=== PATIENT | female | born 1950 | race Caucasian/White ===

== ENCOUNTER 2016-07-03 13:20 | Emergency (ER) | payer MEDICARE ==
--- NOTE | 2016-07-03 13:40 | ER Document Report ---
ED Medical Screen (RME) - General Stated Complaint: FALL/LIP, RIGHT ARM AND KNEE INJURY Notes: patient is a 65 year old female p/w mechanical fall today. unsure of how she landed. pain on nose, right arm, right knee -headache, n/v, ams, confusion not on blood thinners lip lac, facial lac able to walk with abrasions on knee pain at proximal ulna with visible swelling able to move fingers, pulses intact I have greeted and performed a rapid initial assessment of this patient. A comprehensive ED assessment and evaluation of the patient, analysis of test results and completion of the medical decision making process will be conducted by additional ED providers. TRAVEL OUTSIDE OF THE [place] IN LAST 30 DAYS: No Physical Exam - Vital signs Vitals: Temp Pulse Resp BP Pulse Ox 97.6 F 81 18 142/88 H 97 07/03/16 13:28 07/03/16 13:28 07/03/16 13:28 07/03/16 13:28 07/03/16 13:28 Course - Vital Signs Vital signs: Temp Pulse Resp BP Pulse Ox 97.6 F 81 18 142/88 H 97 07/03/16 13:28 07/03/16 13:28 07/03/16 13:28 07/03/16 13:28 07/03/16 13:28
[2016-07-03] MEDS ORDERED: OXYCODONE-ACETAMINOPHEN 5-325 MG TABLET PO ONE (13:41)
--- NOTE | 2016-07-03 14:08 | ER Document Report ---
ED General - General Chief Complaint: Fall Injury Stated Complaint: FALL/LIP, RIGHT ARM AND KNEE INJURY Mode of Arrival: Wheelchair Information source: Patient Notes: Patient presents to the emergency department with complaints of right forearm right elbow pain post fall. Patient reports she fell on her husbands handicap ramp. She denies change in LOC. Patient did hit her face, has a split lip abrasion to the bridge of her nose. Patient is holding her elbow and complaints of any complains of pain with any movement elbow. Reports when she moves her hands or wrists the pain shoots into the elbow but her wrist and hand do not hurt. She reports she did not get dizzy when she fell, she tripped.She also c/o right knee pain but reports hx of arthritic knees. Has FROM, no deficit. TRAVEL OUTSIDE OF THE [place] IN LAST 30 DAYS: No - HPI Onset: Just prior to arrival Onset/Duration: Sudden Quality of pain: Achy, Throbbing Severity: Severe Pain Level: 4 Associated symptoms: None Exacerbated by: Movement Relieved by: Denies Similar symptoms previously: No Recently seen / treated by doctor: No - Related Data Allergies/Adverse Reactions: shellfish derived Allergy (Verified 07/03/16 13:42) Sulfa (Sulfonamide Antibiotics) Allergy (Verified 07/03/16 13:42) Past Medical History - General Information source: Patient Last Menstrual Period: hys - Social History Smoking Status: Never Smoker Cigarette use (# per day): No Frequency of alcohol use: None Drug Abuse: None Lives with: Family Family History: Reviewed & Not Pertinent Patient has suicidal ideation: No Patient has homicidal ideation: No - Past Medical History Cardiac Medical History: Reports: Hx Hypercholesterolemia, Hx Hypertension Renal/ Medical History: Denies: Hx Peritoneal Dialysis Past Surgical History: Reports: Hx Hysterectomy - Immunizations Immunizations up to date: Yes Hx Diphtheria, Pertussis, Tetanus Vaccination: Yes Review of Systems - Review of Systems Notes: Review HPI for review of systems., All other systems negative Physical Exam - Vital signs Vitals: Temp Pulse Resp BP Pulse Ox 97.6 F 81 18 142/88 H 97 07/03/16 13:28 07/03/16 13:28 07/03/16 13:28 07/03/16 13:28 07/03/16 13:28 - Notes Notes: PHYSICAL EXAMINATION: GENERAL: nontoxic looking HEAD: Atraumatic, normocephalic. EYES: Pupils equal round and reactive to light, extraocular movements intact, sclera anicteric, conjunctiva are normal. ENT: abrasion to bridge of nose, nares patent, oropharynx clear without exudates. Moist mucous membranes. bottom lip swollen, 5mm inner lower lip laceration, laceration to philtrum, no active bleeding. NECK: Normal range of motion, supple without lymphadenopathy LUNGS: CTAB and equal. No wheezes rales or rhonchi. HEART: Regular rate and rhythm without murmurs ABDOMEN: Soft, no tenderness. No guarding, no rebound EXTREMITIES: Normal range of motion, no pitting edema. No cyanosis. c/o right knee tender, flex/extend knee without problems. c/o severe elbow pain reports pain to the elbow when she flex , moves her fingers, good cap refill, good radial pulse NEUROLOGICAL: Cranial nerves grossly intact. Normal sensory/motor exams. PSYCH: Normal mood, normal affect. SKIN: Warm, Dry, normal turgor, no rashes or lesions noted - Abdominal Adult front & back diagram: 1 - pain 2 - abrasion 3 - abrasion Course - Re-evaluation Re-evalutation: 07/03/16 14:49 I have consulted the attending provider per [facility] guidelines Paged Dr. Zuñiga thru hospital remelt pan tank operator no answer. Message left via hospital remelt pan tank operator. Contacted the OR, Dr. Zuñiga is in surgery at this time. Pt instructed on plan of care, reports pain decreasing, percocet helped. 07/03/16 16:20 Dr. Zuñiga contacted he requests CT. He requests long bone splint and follow-up in his office on Wednesday to prepare for surgery. 07/03/16 16:27 Dr. Zuñiga in the emergency department introduce himself to the patient reports plan of care CT splint and follow-up in his office Wednesday at 0800 to prepare for surgery next Wednesday or Wednesday. Patient and her daughter both verbalized understanding. - Vital Signs Vital signs: Temp Pulse Resp BP Pulse Ox 97.6 F 81 18 142/88 H 97 07/03/16 13:28 07/03/16 13:28 07/03/16 13:28 07/03/16 13:28 07/03/16 13:28 - Laboratory Result Diagrams: 07/03/16 15:15 07/03/16 15:15 Laboratory results interpreted by me: 07/03/16 07/03/16 15:15 15:15 WBC 12.3 H Seg Neutrophils % 80.3 H Absolute Neutrophils 9.9 H BUN 21 H Calcium 10.9 H - Diagnostic Test Radiology reviewed: Image reviewed, Reports reviewed - IMPRESSION: Comminuted acute fracture distal right humerus extending into the lateral epicondyle, trochlea and capitellum articular surface - EKG Interpretation by Me EKG shows normal: Sinus rhythm Procedures - Immobilization Right Elbow Pre-Proc Neuro Vasc Exam: Normal Immobilizer type: Long arm posterior, Sling Performed by: PCT Post-Proc Neuro Vasc Exam: Unchanged from pre-exam Discharge - Discharge Clinical Impression: Fall (on)(from) incline, initial encounter, Elevated blood pressure reading, facial abrasion, Closed fracture of capitellum of distal humerus Lip laceration Qualifiers: Encounter type: initial encounter Qualified Code(s): S01.511A - Laceration without foreign body of lip, initial encounter Condition: Stable Disposition: HOME, SELF-CARE Instructions: Abrasions of the Face ([facility]), Fracture ([facility]), Oral Laceration, Not Sutured ([facility]), Oral Narcotic Medication ([facility]), Splint Pending Casting ([facility]) , Soap Cleansing ([facility]) Additional Instructions: *You have been evaluated post fall for facial abrasions, non sutured oral laceration, fractured elbow *Monitor your blood pressure. Your blood pressure was elevated today. This may be because you were anxious, in pain or because you need medication. It is important to follow up with your primary care provider for full evaluation. *Monitor the abrasions for signs of infection such as erythema, warmth, swelling , increased pain, discharge- keep the area's clean *Avoid acidy foods *Maintain the splint and sling *Rest/Ice packs/Elevate the arm *Follow up with Dr Zuñiga Wednesday at 0800 to prepare for surgery *Take medication as prescribed for acute pain *Return to ED for worsening condition, changes, needs Prescriptions: Oxycodone HCl/Acetaminophen [Percocet 5-325 mg Tablet] 1 - 2 tab PO ASDIR PRN # 20 tablet PRN Reason: Forms: Elevated Blood Pressure Referrals: KATELYN COOK MD [Primary Care Provider] - Follow up as needed [facility] [Provider Group] - 07/06/16 8:00 am
[2016-07-03 15:34] LABS: ABSOLUTE BASOPHILS # (AUTO) 0.1 10^3/uL (0.0-0.2); ABSOLUTE EOSINOPHILS # (AUTO) 0.1 10^3/uL (0.0-0.6); ABSOLUTE LYMPHOCYTES (AUTO) 1.6 10^3/uL (0.5-4.7); ABSOLUTE MONOCYTES (AUTO) 0.7 10^3/uL (0.1-1.4); ABSOLUTE NEUT (AUTO) 9.9 10^3/uL (1.7-8.2); BASOPHILS % (AUTO) 0.4 % (0-2); EOSINOPHILS % (AUTO) 0.6 % (0-6); HEMATOCRIT 41.9 % (36.0-47.0); HEMOGLOBIN 13.9 g/dL (12.0-15.5); HGB HCT DIFFERENCE -0.2; LYMPHOCYTES % (AUTO) 13.3 % (13-45); MEAN CORPUSCULAR HEMOGLOBIN 30.5 pg (27.0-33.4); MEAN CORPUSCULAR HGB CONC 33.1 g/dL (32.0-36.0); MEAN CORPUSCULAR VOLUME 92 fl (80-97); MONOCYTES % (AUTO) 5.4 % (3-13); RED BLOOD COUNT 4.55 10^6/uL (3.72-5.28); RED CELL DISTRIBUTION WIDTH 12.8 % (11.5-14.0); SEGMENTED NEUTROPHILS % (AUTO) 80.3 % (42-78); WHITE BLOOD COUNT 12.3 10^3/uL (4.0-10.5)
[2016-07-03 15:52] LABS: ALANINE AMINOTRANSFERASE 30 U/L (9-52); ALBUMIN 4.4 g/dL (3.5-5.0); ALKALINE PHOSPHATASE 69 U/L (38-126); ANION GAP 10 (5-19); ASPARTATE AMINO TRANSFERASE 21 U/L (14-36); BILIRUBIN,TOTAL 0.8 mg/dL (0.2-1.3); BLOOD UREA NITROGEN 21 mg/dL (7-20); CALCIUM 10.9 mg/dL (8.4-10.2); CARBON DIOXIDE 27 mmol/L (22-30); CHLORIDE 105 mmol/L (98-107); CREATININE RESULT 0.92 mg/dL (0.52-1.25); GLUCOSE 97 mg/dL (75-110); POTASSIUM 4.4 mmol/L (3.6-5.0); SODIUM 141.5 mmol/L (137-145); TOTAL PROTEIN 6.8 g/dL (6.3-8.2)
--- NOTE | 2016-07-03 16:41 | PDOC CONSULTATION ---
Consultation Consult Date: 07/03/16 Consult reason:: Right elbow fracture History of Present Illness Patient complains of: Right elbow pain and swelling History of Present Illness: DG RODRIGUEZ is a 65 year old female who fell down her husbands handicap ramp onto her right elbow. Immediately had pain and swelling. Denies loss of consciousness and denies any other extremity injury. Complains of pain and decreased range of motion and weakness of the right elbow. Denies any numbness or tingling. Denies any previous surgery or, to the right elbow. Past Medical History Cardiac Medical History: Reports: Hyperlipidema, Hypertension Past Surgical History Past Surgical History: Reports: Hysterectomy Social History Lives with: Family Smoking Status: Never Smoker Family History Family History: Reviewed & Not Pertinent Parental Family History Reviewed: Yes Children Family History Reviewed: Yes Sibling(s) Family History Reviewed.: Yes Medication/Allergy Allergies/Adverse Reactions: shellfish derived Allergy (Verified 07/03/16 13:42) Sulfa (Sulfonamide Antibiotics) Allergy (Verified 07/03/16 13:42) Review of Systems All systems: reviewed and no additional remarkable complaints except as stated Constitutional: ABSENT: fever(s), headache(s) Eyes: ABSENT: visual disturbances Ears: ABSENT: hearing changes Nose, Mouth, and Throat: ABSENT: headache(s) Cardiovascular: ABSENT: chest pain, dyspnea on exertion, palpitations Respiratory: ABSENT: cough, dyspnea Gastrointestinal: ABSENT: abdominal pain, nausea, vomiting Genitourinary: ABSENT: difficulty urinating Musculoskeletal: PRESENT: as per HPI Integumentary: ABSENT: erythema, lesions, rash Neurological: PRESENT: as per HPI. ABSENT: dizziness, paresthesias, tingling Psychiatric: ABSENT: hallucinations, suicidal ideation Endocrine: ABSENT: cold intolerance, heat intolerance Hematologic/Lymphatic: ABSENT: easy bleeding, lymphadenopathy Allergic/Immunologic: ABSENT: seasonal rhinorrhea Physical Exam Vital Signs: Temp Pulse Resp BP Pulse Ox 36.4 C 81 18 142/88 H 97 07/03/16 13:28 07/03/16 13:28 07/03/16 13:28 07/03/16 13:28 07/03/16 13:28 Intake & Output 07/02/16 07/03/16 07/04/16 06:59 06:59 06:59 Weight 85.4 kg General appearance: PRESENT: no acute distress Head exam: PRESENT: other - Superficial abrasions in her nose and upper right eyelid. Eye exam: PRESENT: EOMI, PERRLA. ABSENT: nystagmus Neck exam: PRESENT: full ROM. ABSENT: thyromegaly Respiratory exam: PRESENT: chest wall tenderness, symmetrical, unlabored. ABSENT: accessory muscle use, tachypnea Pulses: PRESENT: normal radial pulses Vascular exam: PRESENT: normal capillary refill GI/Abdominal exam: PRESENT: soft. ABSENT: distended, guarding, mass, organolmegaly, tenderness Rectal exam: PRESENT: deferred Musculoskeletal exam: PRESENT: tenderness, other - Positive swelling over the right elbow with tenderness to palpation anterior lateral and posterior aspect of the elbow. No crepitus palpated. Any attempted range of motion was painful. Range of motion is limited due to pain. Decreased strength due to fracture. Patient has good sensation distally with intact radial, ulnar, median nerve distribution for both motor and sensory.. ABSENT: deformity, dislocation Neurological exam: PRESENT: alert, awake, oriented to person, oriented to place , oriented to time Psychiatric exam: PRESENT: appropriate affect, normal mood Skin exam: PRESENT: abrasion - In her nose and forehead. Per official in nature. Results Laboratory Results: 07/03/16 15:15 07/03/16 15:15 07/03/16 07/03/16 15:15 15:15 WBC 12.3 H RBC 4.55 Hgb 13.9 Hct 41.9 MCV 92 MCH 30.5 MCHC 33.1 RDW 12.8 Plt Count 240 Seg Neutrophils % 80.3 H Lymphocytes % 13.3 Monocytes % 5.4 Eosinophils % 0.6 Basophils % 0.4 Absolute Neutrophils 9.9 H Absolute Lymphocytes 1.6 Absolute Monocytes 0.7 Absolute Eosinophils 0.1 Absolute Basophils 0.1 Sodium 141.5 Potassium 4.4 Chloride 105 Carbon Dioxide 27 Anion Gap 10 BUN 21 H Creatinine 0.92 Est GFR ( Amer) > 60 Est GFR (Non-Af Amer) > 60 Glucose 97 Calcium 10.9 H Total Bilirubin 0.8 AST 21 ALT 30 Alkaline Phosphatase 69 Total Protein 6.8 Albumin 4.4 Impressions: Elbow X-Ray 07/03/16 13:41 IMPRESSION: Comminuted acute fracture distal right humerus extending into the lateral epicondyle, trochlea and capitellum articular surface Forearm X-Ray 07/03/16 13:41 IMPRESSION: Comminuted acute distal right humerus fracture involving the articular surfaces at the radiocapitellar and ulna humeral joint. Bony fragment containing the lateral epicondyle is present. Head CT 07/03/16 14:01 IMPRESSION: NORMAL BRAIN CT WITHOUT CONTRAST. Status: Image reviewed by me Assessment & Plan - Diagnosis (1) Closed fracture of capitellum of distal humerus Is this a current diagnosis for this admission?: YesPlan: 65-year-old female with displaced right patellar fracture with involvement of the trochlea. Fractures is displaced. Instructed to order a CT scan for right elbow. Recommended a long-arm splint and told to ice and elevate. Instructions are to be nonweightbearing. Also told to provide her his sling for comfort. When the CT scan is completed patient can be discharged home and then see me on Wednesday to schedule surgery as an outpatient. The ER will provide her pain medication in the meantime.
[2016-07-03 17:32] VITALS: BP 115/67
--- NOTE | 2016-07-03 19:13 | EKG REPORT ---
SEVERITY:- BORDERLINE ECG - SINUS RHYTHM LVH BY VOLTAGE : Confirmed by: Sesar Pro MD 03-Jul-2016 19:11:55
== END 2016-07-03 17:30 | disposition home or self-care (01) ==
LOC: ER 13:20
PROC: 2W38X1Z Immobilization of Right Upper Extremity using Splint (ICD-10-PCS; principal; 2016-07-03)
DX: S42.451A Displaced fracture of lateral condyle of right humerus, initial encounter for closed fracture (principal); S01.511A Laceration without foreign body of lip, initial encounter; W10.2XXA Fall (on)(from) incline, initial encounter; M79.631 Pain in right forearm; M25.521 Pain in right elbow; M25.561 Pain in right knee; I10 Essential (primary) hypertension; Z88.2 Allergy status to sulfonamides; Z91.013 Allergy to seafood
CPT/HCPCS: 93005; 99284; 36415; 85025; 80053; 73070; 73090; 70450; 73200; 93010; 29105; A9270

== ENCOUNTER 2016-07-07 13:21 | Day surgery (SDC) | payer MEDICARE, OTHER ==
[~2016-07-07 13:21] MED LIST: CEFAZOLIN 2 GM/D5W RTU 2 GM/50 ML RTUPB IV PRN; GLYCOPYRROLATE INJ 0.4 MG/2 ML VIAL ONE; LIDOCAINE 2% INJ-PF (20 MG/ML) 10 ML AMPUL ONE; METOCLOPRAMIDE HCL INJ/PF 10 MG/2 ML SDV ONE; ONDANSETRON HCL INJ/PF 4 MG/2 ML SDV ONE; PHENYLEPHRINE HCL INJ/PF 10 MG/1 ML SDV ONE; ROCURONIUM BROMIDE INJ 50 MG/5 ML VIAL IV ONE; SUCCINYLCHOLINE CHLORIDE INJ 200 MG/10 ML VIAL ONE
[2016-07-07] MEDS ORDERED: HYDROMORPHONE HCL INJ/PF 2 MG/ML AMPULE ONE (14:50)
[2016-07-07] MEDS ORDERED: FENTANYL CITRATE INJ/PF 250 MCG/5 ML AMPULE ONE (16:58)
[2016-07-07] MEDS ORDERED: ACETAMINOPHEN 100 ML IV ONE (16:58)
[2016-07-07] MEDS ORDERED: MIDAZOLAM 2 MG/2 ML INJ ONE (16:58)
[2016-07-07] MEDS ORDERED: MORPHINE SULFATE 10 MG/ML INJ ONE (16:59)
[2016-07-07] MEDS ORDERED: DIPHENHYDRAMINE HCL 50 MG/ML VIAL IV PRN (18:37)
[2016-07-07] MEDS ORDERED: PROMETHAZINE HCL INJ 25 MG/1 ML VIAL IV PRN ×2 (18:37)
[2016-07-07] MEDS ORDERED: MORPHINE SULFATE 10 MG/ML INJ IV PRN (18:37)
[2016-07-07] MEDS ORDERED: OXYCODONE-ACETAMINOPHEN 5-325 MG TABLET PO PRN ×2 (18:37)
[2016-07-07] MEDS ORDERED: MEPERIDINE HCL/PF INJ 25 MG/1 ML DISP.SYRIN IV PRN (18:37)
[2016-07-07] MEDS ORDERED: FENTANYL CITRATE INJ/PF 100 MCG/2 ML AMPUL IV PRN ×3 (18:37)
[2016-07-08] MEDS ORDERED: OXYCODONE HCL IR 5 MG TABLET PO PRN (00:01)
[2016-07-08] MEDS ORDERED: OXYCODONE-ACETAMINOPHEN 5-325 MG TABLET PO PRN (00:01)
[2016-07-08] MEDS ORDERED: ONDANSETRON HCL INJ/PF 4 MG/2 ML SDV IV PRN (00:09)
[2016-07-08] MEDS ORDERED: SIMVASTATIN 10 MG TABLET PO ONE (00:30)
[2016-07-08] MEDS: KETOROLAC TROMETHAMINE INJ/PF 30 MG/1 ML SDV IV SCH ×2 (00:36→12:02)
[2016-07-08] MEDS: OXYCODONE HCL IR 5 MG TABLET PO PRN ×2 (01:57→06:03)
[2016-07-08] MEDS: OXYCODONE-ACETAMINOPHEN 5-325 MG TABLET PO PRN ×2 (01:57→06:03)
[2016-07-08] MEDS ORDERED: CEFAZOLIN INJ 1 GM VIAL ONE (02:00)
[2016-07-08] MEDS ORDERED: CEFAZOLIN INJ 1 GM VIAL IV ONE (02:30)
[2016-07-08] MEDS: CEFAZOLIN 2 GM/D5W RTU 2 GM/50 ML RTUPB IV SCH ×2 (02:56→12:58)
[2016-07-08] MEDS: RINGERS SOLUTION,LACTATED 1,000 ML IV PRN ×2 (05:05→15:27)
[2016-07-08 05:13] LABS: ABSOLUTE LYMPHOCYTES (AUTO) 1.4 10^3/uL (0.5-4.7); ABSOLUTE MONOCYTES (AUTO) 1.3 10^3/uL (0.1-1.4); ABSOLUTE NEUT (AUTO) 12.2 10^3/uL (1.7-8.2); BASOPHILS % (AUTO) 0.2 % (0-2); HEMATOCRIT 34.9 % (36.0-47.0); HEMOGLOBIN 11.6 g/dL (12.0-15.5); HGB HCT DIFFERENCE -0.1; LYMPHOCYTES % (AUTO) 9.5 % (13-45); MEAN CORPUSCULAR HEMOGLOBIN 30.8 pg (27.0-33.4); MEAN CORPUSCULAR HGB CONC 33.1 g/dL (32.0-36.0); MEAN CORPUSCULAR VOLUME 93 fl (80-97); MONOCYTES % (AUTO) 8.9 % (3-13); RED BLOOD COUNT 3.75 10^6/uL (3.72-5.28); RED CELL DISTRIBUTION WIDTH 12.2 % (11.5-14.0); SEGMENTED NEUTROPHILS % (AUTO) 81.4 % (42-78)
[2016-07-08 05:40] LABS: ANION GAP 9 (5-19); BLOOD UREA NITROGEN 19 mg/dL (7-20); CALCIUM 9.9 mg/dL (8.4-10.2); CARBON DIOXIDE 28 mmol/L (22-30); CHLORIDE 103 mmol/L (98-107); CREATININE RESULT 0.87 mg/dL (0.52-1.25); GLUCOSE 112 mg/dL (75-110); SODIUM 139.5 mmol/L (137-145)
[2016-07-08] MEDS ORDERED: HYDROCHLOROTHIAZIDE 25 MG TABLET PO SCH (10:00)
[2016-07-08] MEDS ORDERED: LISINOPRIL 10 MG TABLET PO SCH (10:00)
[2016-07-08] MEDS: DOCUSATE SODIUM 100 MG CAPSULE PO SCH ×2 (10:43→17:24)
[2016-07-08] MEDS ORDERED: CEFAZOLIN 2 GM/D5W RTU 2 GM/50 ML RTUPB IV ONE (12:30)
--- NOTE | 2016-07-08 17:50 | Operative Report ---
Operative Report DATE OF SURGERY: 07/07/16 PREOPERATIVE DIAGNOSIS: Right intra-articular distal humerus fracture POSTOPERATIVE DIAGNOSIS: Same OPERATION: ORIF of right intra-articular distal humerus fracture SURGEON: HANNAH TYSON 1ST COMMUNICATIONS SUPERVISOR: [place] BHATIA ANESTHESIA: GA TISSUE REMOVED OR ALTERED: None COMPLICATIONS: None ESTIMATED BLOOD LOSS: 150 mL INTRAOPERATIVE FINDINGS: Comminuted intra-articular humerus fracture involving the entire joint surface PROCEDURE: After patient received 2 g of IV Ancef in the preop holding area patient was brought to the operating room and placed in supine position where she was induced and intubated successfully. The right upper extremity was prepped and draped in a normal sterile surgical fashion. A sterile tourniquet was applied and then a timeout was done identifying the right distal humerus as the correct site. The extremity was placed over her chest and a midline incision was done from midforearm over the olecranon process and to distal third of the proximal arm. Dissection there was a done with Metzenbaum scissors exposing the fascial layer. Quickly was able to expose her current process and dissected proximally exposing the triceps. I was able then to visualize the cubital tunnel and excise it and released the ulnar nerve and retracted medially and tag it with a vessel loop. I then turned my attention to exposing the lateral aspect of the elbow joint splitting the fascial tissue and exposing the capitellar shear fracture medial epicondyle fracture. I did a Chevron osteotomy of the olecranon. Prior to doing the osteotomy I did place an olecranon plate and drilled one hole in the shaft and drilled one hole in the proximal fragment. I secured it with a screw to make sure was in proper placement and then I then proceeded to remove the screw and plate and do my Chevron osteotomy with a small oscillating saw. The to reflect the olecranon fragment and released some of the triceps off the posterior aspect of the humerus. Immediately I saw the comminution of the trochlea and capitellum. There is significant bone loss and cartilage loss. I first tried to secure some of the fragments with K wires once I was happy with partial reduction of the fragments and then proceeded to place some of my headless compression screws to hold the fragments in place and make sure that they're recessed and countersunk and not exposed to the joint. Dr. Bhatia assisted in the reduction and placement of screws to hold our reduction as well during the case. We first place some screws to hold the trochlear coronal split and then we proceeded then to place a interfrag screw from undergoing the medial epicondyle. We then placed a screw holding the capitellum into the medial epicondyle. We then placed a another screw to hold from the epicondyle and capitellum into the trochlear fragment. We also placed a screw from the trochlea and to the medial condyle. All the screw placements were done under C-arm visualization to confirm length and make sure that they were buried and not protruding the articular cartilage. Once we were able to reduce her fragments and fixated him to the condyles we felt the plate and screws would not add to her fixation and would have little purchase therefore we just proceeded then to irrigate the joint and then reduced olecranon osteotomy and place a plate. We place our screws securing the plate in position and then filled the remaining holes with the appropriate screws and length. C-arm pictures were taken to show our final reduction and fixation including the fixation of her olecranon osteotomy. At this point we proceeded to close the wound by reapproximating some of the split muscle with [address] 1 stitch to secure the cubital tunnel and secure the ulnar nerve in the posterior aspect of the medial epicondyle to avoid any subluxation. This was closed loosely to avoid any compression. Irrigation was used in the clean subcutaneous layer. We then approximated the subcutaneous tenderness tissue with 0 Vicryl and used 2-0 Vicryl approximate the dermis and mag for skin. Xeroform was used to cover the incision and then 4 x 4 dressing and Sof-Rol was used to secure it. No extremity was wrapped with soft roll and then a 4 inch long posterior arm splint was applied and overwrapped with an Ceasar bandage with the arm held in neutral position and flexed at 90. Of note tourniquet was let down at 130 minutes. Waited until the splint hardened and the patient was placed in a sling and the drapes were removed and the patient was extubated and sent to PACU in stable condition.
[2016-07-08 18:17] VITALS: BP 105/63
[2016-07-08] MEDS ORDERED: SIMVASTATIN 10 MG TABLET PO SCH (22:00)
[2016-07-09] MEDS ORDERED: HYDROCHLOROTHIAZIDE 12.5 MG CAPSULE PO SCH (10:00)
[2016-07-09] MEDS ORDERED: LISINOPRIL 10 MG TABLET PO SCH (10:00)
== END 2016-07-08 18:18 | disposition home or self-care (01) ==
LOC: OROUT 13:21 → 4S 07-08 00:02 → OROUT 07-08 18:18
PROVIDERS: ATTEND Orthopaedic Surgery
PROC: 0PSF04Z Reposition Right Humeral Shaft with Internal Fixation Device, Open Approach (ICD-10-PCS; principal; 2016-07-07 15:30)
DX: S42.461A Displaced fracture of medial condyle of right humerus, initial encounter for closed fracture (principal); X58.XXXA Exposure to other specified factors, initial encounter; S42.451D Displaced fracture of lateral condyle of right humerus, subsequent encounter for fracture with routine healing; M06.9 Rheumatoid arthritis, unspecified; I10 Essential (primary) hypertension; Z88.2 Allergy status to sulfonamides; Z79.899 Other long term (current) drug therapy
CPT/HCPCS: 36415; 84132; 85025; 80048; 73070; 73080; 24586; C1713 ×4; C1769; A9270 ×5; J2250; J3490 ×2; J3010; J1885; J2765; J2270; J1170; J2370; J0330; J2405; J7120; J0690 ×2; J0131; 01740

== ENCOUNTER → 2017-04-19 | Outpatient (CLI) | payer MEDICARE, OTHER ==
--- NOTE | 2017-04-19 16:55 | WOMENS IMAGING REPORT ---
EXAM DESCRIPTION: BILAT SCREENING MAMMO W/CAD COMPLETED DATE/TIME: 04/19/2017 11:02 am REASON FOR STUDY: ROUTINE SCREENING; Z12.31 Z12.31 ENCNTR SCREEN MAMMOGRAM FOR MALIGNANT NEOPLASM O F VARUN COMPARISON: Multiple since 2009 TECHNIQUE: Standard craniocaudal and mediolateral oblique views of each breast recorded using [employer] [place] l acquisition. LIMITATIONS: None. FINDINGS: Findings present which are benign by mammographic criteria. No suspicious masses, calcifi cations or architectural distortion. Pertinent benign findings: Stable bilateral breast calcifications and nodules Read with the assistance of CAD. .[facility] - R2 Cenova Version 1.3 .[facility] - R2 Cenova Version 1.3 .[facility] - R2 Cenova Version 2.4 .[facility] - R2 Cenova Version 2.4 .[facility] - R2 C Software Developer Version 9.2 Benign mammographic findings may include one or more of the following: Smooth masses, popcorn/rim/co arse calcifications, asymmetries, post-procedure changes, and lesions with long-standing stability. IMPRESSION: BENIGN MAMMOGRAPHIC FINDINGS. BIRADS 2 BREAST DENSITY: b. There are scattered areas of fibroglandular density. BIRAD: 2 BENIGN FINDING(S) RECOMMENDATION: ROUTINE SCREENING Please consider bilateral screening tomosynthesis in March 2018 COMMENT: The patient has been notified of the results by letter per MQSA requirements. Additional no tification policies are in place for contacting patient with suspicious or incomplete findings. Quality ID #225: The [employer] recommends an annual screening mammogram for women aged 40 years or over. This facility utilizes a reminder system to ensure that all patients receive reminder letters, and/or direct phone calls for appointments. This includes reminders for routine scr eening mammograms, diagnostic mammograms, or other Breast Imaging Interventions when appropriate. Th is patient will be placed in the appropriate reminder system. The [employer] (ACR) has developed recommendations for screening MRI of the breast s in certain patient populations, to be used in conjunction with mammography. Breast MRI surveillanc e may be appropriate for women with more than 20% lifetime risk of developing breast cancer as deter mined by genetic testing, significant family history of the disease, or history of mantle radiation f or Hodgkins Disease. ACR Practice Guidelines 2008. TECHNICAL DOCUMENTATION: FINDING NUMBER: (1) ASSESSMENT: (1) JOB ID: [id number] [employer]- All Rights Reserved
== END ==
LOC: WI 10:44
PROVIDERS: ATTEND Family Medicine
DX: Z12.31 Encounter for screening mammogram for malignant neoplasm of breast (principal)
CPT/HCPCS: 77067; G0202

== ENCOUNTER → 2018-05-04 | Outpatient (CLI) | payer MEDICARE, OTHER ==
--- NOTE | 2018-05-04 14:00 | WOMENS IMAGING REPORT ---
EXAM DESCRIPTION: BILAT SCREENING MAMMO W/CAD COMPLETED DATE/TIME: 05/04/2018 1:32 pm REASON FOR STUDY: BILATERAL SCREENING MAMMO /Z12.31 Z12.31 ENCNTR SCREEN MAMMOGRAM FOR MALIGNANT NE OPLASM OF VARUN COMPARISON: March 2017 and March 2016 TECHNIQUE: Standard craniocaudal and mediolateral oblique views of each breast recorded using digita l acquisition. LIMITATIONS: None. FINDINGS: No masses, calcifications or architectural distortion. No areas of suspicion. Read with the assistance of CAD. .[facility] - R2 Cenova Version 1.3 .[facility] Imaging - R2 Cenova Version 1.3 .[facility] Imaging - R2 Cenova Version 2.4 .[facility] [place] R2 Cenova Version 2.4 .[facility] - R2 Supervisor Reinforced Steel Placing Version 9.2 IMPRESSION: NORMAL MAMMOGRAM. BIRADS 1. BREAST DENSITY: b. There are scattered areas of fibroglandular density. BIRAD: 1 NEGATIVE RECOMMENDATION: ROUTINE SCREENING COMMENT: The patient has been notified of the results by letter per SA requirements. Additional no tification policies are in place for contacting patient with suspicious or incomplete findings. Quality ID #[id number]: The [employer] recommends an annual screening mammogram for women aged 40 years or over. This facility utilizes a reminder system to ensure that all patients receive reminder letters, and/or direct phone calls for appointments. This includes reminders for routine scr eening mammograms, diagnostic mammograms, or other Breast Imaging Interventions when appropriate. Th is patient will be placed in the appropriate reminder system. The [employer] (ACR) has developed recommendations for screening MRI of the breast s in certain patient populations, to be used in conjunction with mammography. Breast MRI surveillanc e may be appropriate for women with more than 20% lifetime risk of developing breast cancer as deter mined by genetic testing, significant family history of the disease, or history of mantle radiation f or Hodgkins Disease. ACR Practice Guidelines 2008. TECHNICAL DOCUMENTATION: FINDING NUMBER: (1) ASSESSMENT: (1) JOB ID: [id number] [employer]- All Rights Reserved Reading location - IP/workstation name: [email or web address]
== END ==
LOC: WI 13:02
PROVIDERS: ATTEND Family Medicine
DX: Z12.31 Encounter for screening mammogram for malignant neoplasm of breast (principal)
CPT/HCPCS: 77067